=== PATIENT | male | born 1950 | race Caucasian/White ===

== ENCOUNTER → 2018-01-04 | Outpatient (CLI) | payer MEDICARE ==
[~2018-01-04] MED LIST: METO50TA18 PO; MINO100T PO; PRAV40TA3 PO; VERA120T11 PO; WARF5TAB76 PO
== END | disposition home or self-care (01) ==
LOC: SHCH 14:25
PROVIDERS: ATTEND Internal Medicine Cardiovascular Disease
DX: R00.2 Palpitations (principal)
CPT/HCPCS: 93306

== ENCOUNTER 2018-03-11 06:56 | Observation (INO) | payer MEDICARE ==
[2018-03-09 11:07] VITALS: BP 148/88
[2018-03-09 11:25] LABS: BASOPHILS % (AUTO) 0.5 % (0.0-5.0); EOSINOPHILS % (AUTO) 1.6 % (0.0-8.0); HEMATOCRIT 46.3 % (42-54); LYMPHOCYTES % (AUTO) 62.6 % (21.0-51.0); MEAN CORPUSCULAR HEMOGLOBIN 31.5 pg (27.0-33.0); MEAN CORPUSCULAR HGB CONC 34.7 g/dL (32.0-36.0); MEAN CORPUSCULAR VOLUME 90.7 fL (79-99); MONOCYTES % (AUTO) 5.5 % (3.0-13.0); NEUTROPHILS % (AUTO) 29.8 % (40.0-77.0); NUCLEATED RED BLOOD CELLS 0.2 % (0.0-0.19); PLATELET COUNT (AUTO) 177 K/uL (130-400); RED BLOOD CELL COUNT(AUTO) 5.11 MIL/uL (4.50-6.20); RED CELL DISTRIBUTION WIDTH 14.5 % (11.0-15.5); WHITE BLOOD COUNT (AUTO) 12.8 K/uL (4.8-10.8)
[2018-03-09 11:38] LABS: CREATININE 0.9 mg/dL (0.5-1.5); POTASSIUM 4.3 mmol/L (3.5-5.1)
[2018-03-09 11:49] LABS: INR 2.1 (0.85-1.15); PARTIAL THROMBOPLASTIN TIME 37.2 SEC (26.3-35.5); PROTHROMBIN TIME 21.7 SEC (9.6-11.6)
[~2018-03-11] VITALS: Ht 203.2 cm; Wt 157.2 kg
[2018-03-11] VITALS (9 sets, daily range): BP systolic 106–129; BP diastolic 76–90
[2018-03-11 07:50] LABS: INR 1.73 (0.85-1.15); PARTIAL THROMBOPLASTIN TIME 33.4 SEC (26.3-35.5)
[2018-03-11] MEDS: SODIUM CHLORIDE 0.9% 1000ML 1,000 ML IV SCH ×2 (08:28→13:51)
[2018-03-11] MEDS ORDERED: LIDOCAINE HCL-MPF 2% 5ML VIAL ONE ×2 (09:59→10:37)
[2018-03-11] MEDS ORDERED: MIDAZOLAM HCL 1 MG/ML 2ML VIAL ONE ×4 (10:32→12:19)
[2018-03-11] MEDS ORDERED: MEPERIDINE-PF 50 MG/ML SYG ONE ×3 (10:32→12:13)
[2018-03-11] MEDS ORDERED: HEPARIN SODIUM 1000UNIT/ML 10ML VIAL ONE (11:06)
[2018-03-11] MEDS ORDERED: ADENOSINE 3 MG/ML 2ML VIAL IV ONE (11:33)
[2018-03-11] MEDS ORDERED: ISOPROTERENOL HCL 0.2 MG/ML AMP/VIAL/BAG ONE (12:46)
[2018-03-11] MEDS: WARFARIN SODIUM 5 MG TAB PO SCH (15:40)
[2018-03-11] MEDS ORDERED: HYDROCODONE/ACETAMINOPHEN 5/325 MG TAB PO PRN (15:45)
[2018-03-11] MEDS ORDERED: ONDANSETRON HCL 4 MG/2 ML VIAL IVP PRN (15:45)
[2018-03-11] MEDS ORDERED: ACETAMINOPHEN 325 MG TAB PO PRN (15:45)
[2018-03-11] MEDS: METOPROLOL TARTRATE 50 MG TAB PO SCH (20:25)
[2018-03-11] MEDS: ENOXAPARIN SODIUM 120 MG/0.8ML SQ SCH (20:25)
[2018-03-11] MEDS: ENOXAPARIN SODIUM 40 MG/0.4 ML SYRINGE SQ SCH (20:26)
[2018-03-11] MEDS ORDERED: ENOXAPARIN SODIUM 1 MG/KG SQ SCH (21:00)
[2018-03-12 00:27] VITALS: BP 123/75
[2018-03-12 04:52] VITALS: BP 130/78
[2018-03-12 07:30] VITALS: BP 126/80
[2018-03-12] MEDS ORDERED: MINOCYCLINE HCL 50 MG CAP PO SCH (09:00)
[2018-03-12] MEDS: METOPROLOL TARTRATE 50 MG TAB PO SCH (09:39)
[2018-03-12] MEDS: ENOXAPARIN SODIUM 40 MG/0.4 ML SYRINGE SQ SCH (09:40)
[2018-03-12] MEDS: ENOXAPARIN SODIUM 120 MG/0.8ML SQ SCH (09:40)
[2018-03-12 11:30] VITALS: BP 118/75
[2018-03-12 13:37] LABS: INR 1.89 (0.85-1.15); PROTHROMBIN TIME 19.6 SEC (9.6-11.6)
[2018-03-12 16:00] VITALS: BP 119/65
[2018-03-12] MEDS: WARFARIN SODIUM 5 MG TAB PO SCH (17:22)
== END 2018-03-12 17:30 | disposition home or self-care (01) ==
LOC: DAH 06:56 → DAHIP 06:57 → 2DH 14:23
PROVIDERS: ADMIT Internal Medicine Critical Care Medicine; ATTEND Internal Medicine Critical Care Medicine
DX: I47.1 Supraventricular tachycardia (principal); I10 Essential (primary) hypertension; E78.5 Hyperlipidemia, unspecified; D68.59 Other primary thrombophilia; I26.99 Other pulmonary embolism without acute cor pulmonale; Z79.01 Long term (current) use of anticoagulants; Z86.711 Personal history of pulmonary embolism; Z86.718 Personal history of other venous thrombosis and embolism
CPT/HCPCS: 36415 ×3; 80048; 85025; 85060; 85347; 85610 ×3; 85730 ×2; 93005; 93613; 93621; 93623; 93653; 96372 ×2; A4606; A4649; C1730 ×5; C1732; C1893; C1894 ×5; G0378 ×35; J0153; J1644 ×2; J1650 ×5; J2175 ×3; J2250 ×3; J3490 ×3; J7030; 99156; 99157

== ENCOUNTER 2018-03-13 12:51 | Emergency (ER) | payer MEDICARE ==
[~2018-03-13 12:51] MED LIST changes: -VERA120T11 PO
[2018-03-13 13:48] LABS: BASOPHILS % (AUTO) 0.6 % (0.0-5.0); EOSINOPHILS % (AUTO) 1.9 % (0.0-8.0); HEMATOCRIT 42.7 % (42-54); LYMPHOCYTES % (AUTO) 63.6 % (21.0-51.0); MEAN CORPUSCULAR HEMOGLOBIN 31.7 pg (27.0-33.0); MEAN CORPUSCULAR HGB CONC 34.8 g/dL (32.0-36.0); MEAN CORPUSCULAR VOLUME 91.1 fL (79-99); MONOCYTES % (AUTO) 5.3 % (3.0-13.0); NEUTROPHILS % (AUTO) 28.6 % (40.0-77.0); NUCLEATED RED BLOOD CELLS 0.4 % (0.0-0.19); PLATELET COUNT (AUTO) 161 K/uL (130-400); RED BLOOD CELL COUNT(AUTO) 4.69 MIL/uL (4.50-6.20); RED CELL DISTRIBUTION WIDTH 14.6 % (11.0-15.5); WHITE BLOOD COUNT (AUTO) 9.3 K/uL (4.8-10.8)
[2018-03-13 13:59] LABS: INR 2.09 (0.85-1.15); PARTIAL THROMBOPLASTIN TIME 36.9 SEC (26.3-35.5); POTASSIUM 4.8 mmol/L (3.5-5.1); PROTHROMBIN TIME 21.6 SEC (9.6-11.6)
[2018-03-13 14:14] LABS: ALBUMIN 3.1 g/dL (3.5-5.0); BILIRUBIN,TOTAL 0.9 mg/dL (0.2-1.0); TOTAL PROTEIN, SERUM 6.2 g/dL (6.0-8.3)
== END 2018-03-13 14:46 | disposition home or self-care (01) ==
LOC: EDH 12:51
DX: M79.605 Pain in left leg (principal); E78.5 Hyperlipidemia, unspecified; I10 Essential (primary) hypertension; Z86.711 Personal history of pulmonary embolism; Z88.1 Allergy status to other antibiotic agents
CPT/HCPCS: 36415; 71045; 80053; 82550; 82553; 84484; 85025; 85378; 85610; 85730; 93005; 93971

== ENCOUNTER → 2018-07-19 | Outpatient (CLI) | payer MEDICARE | END | disposition home or self-care (01) | LOC: SHCH 12:56 | PROVIDERS: ATTEND Internal Medicine Cardiovascular Disease | DX: I47.2 Ventricular tachycardia (principal); I48.1 Persistent atrial fibrillation; I49.3 Ventricular premature depolarization | CPT/HCPCS: 93306 ==

== ENCOUNTER 2019-10-07 05:45 | Day surgery (SDC) | payer MEDICARE ==
[~2019-10-07] VITALS: Ht 205.7 cm; Wt 152.4 kg
[2019-10-07] MEDS ORDERED: SODIUM CHLORIDE 0.9% 1000ML 1,000 ML IV ONE (06:26)
[2019-10-07 06:35] VITALS: BP 102/73
[2019-10-07 06:47] LABS: INR 1.4 (0.85-1.15); PROTHROMBIN TIME 14.5 SEC (9.6-11.6)
[2019-10-07] MEDS ORDERED: PROPOFOL 10 MG/ML 20ML VIAL IV ONE (07:01)
[2019-10-07] MEDS ORDERED: PHENYLEPHRINE HCL 10 MG/ML 1ML VIAL IV ONE (07:02)
[2019-10-07] MEDS ORDERED: LIDOCAINE HCL 1% 20 ML VIAL ONE (07:02)
[2019-10-07 07:30] VITALS: BP 88/50
[2019-10-07 07:50] VITALS: BP 104/46
== END 2019-10-07 07:57 | disposition home or self-care (01) ==
LOC: ENDO 05:45 → DAH 05:45 → ENDO 07:57
PROVIDERS: ATTEND Internal Medicine Gastroenterology
DX: Z12.11 Encounter for screening for malignant neoplasm of colon (principal); K63.5 Polyp of colon; K57.30 Diverticulosis of large intestine without perforation or abscess without bleeding; E78.5 Hyperlipidemia, unspecified; E66.01 Morbid (severe) obesity due to excess calories; Z68.36 Body mass index [BMI] 36.0-36.9, adult; Z88.1 Allergy status to other antibiotic agents; Z79.899 Other long term (current) drug therapy; Z79.01 Long term (current) use of anticoagulants; Z72.89 Other problems related to lifestyle; Z90.49 Acquired absence of other specified parts of digestive tract; Z98.49 Cataract extraction status, unspecified eye; Z86.010 Personal history of colon polyps
CPT/HCPCS: 36415; 45385; 85610; 88305; A4215; A4221; A4222; A4223; A4606; A4615; A4663; J2370; J2704; J7030

== ENCOUNTER → 2020-11-30 | Outpatient (CLI) | payer MEDICARE ==
[~2020-11-30] MED LIST changes: -METO50TA18 PO; +WARF5TAB PO; -WARF5TAB76 PO
== END | disposition home or self-care (01) ==
LOC: RAH 12:43
PROVIDERS: ATTEND Internal Medicine Cardiovascular Disease
DX: I80.202 Phlebitis and thrombophlebitis of unspecified deep vessels of left lower extremity (principal); I87.2 Venous insufficiency (chronic) (peripheral)
CPT/HCPCS: 93970

== ENCOUNTER → 2020-12-17 | Outpatient (CLI) | payer MEDICARE | END | disposition home or self-care (01) | LOC: SHCH 12:38 | PROVIDERS: ATTEND Internal Medicine Cardiovascular Disease | DX: I10 Essential (primary) hypertension (principal) | CPT/HCPCS: 93306; 93356 ==

== ENCOUNTER → 2021-03-21 | Outpatient (CLI) | payer MEDICARE | END | disposition home or self-care (01) | LOC: SHCH 09:42 | PROVIDERS: ATTEND Internal Medicine Cardiovascular Disease | DX: I08.0 Rheumatic disorders of both mitral and aortic valves (principal); I42.0 Dilated cardiomyopathy; R55 Syncope and collapse; E66.9 Obesity, unspecified; E78.5 Hyperlipidemia, unspecified | CPT/HCPCS: 93306; 93356 ==

== ENCOUNTER → 2021-03-22 | Outpatient (CLI) | payer MEDICARE ==
[~2021-03-22] VITALS: Ht 198.1 cm; Wt 145.1 kg
[~2021-03-22] MED LIST changes: +REGADENOSON 0.4 MG/5 ML PF SYG IVP SCH
== END | disposition home or self-care (01) ==
LOC: SHCH 07:43
PROVIDERS: ATTEND Internal Medicine Cardiovascular Disease
DX: I42.0 Dilated cardiomyopathy (principal); R06.02 Shortness of breath
CPT/HCPCS: 78452; 93017; 96374; A9500 ×2; J2785

== ENCOUNTER 2021-04-26 07:46 | Day surgery (SDC) | payer MEDICARE ==
[2021-04-23 09:19] LABS: BASOPHILS % (AUTO) 0.5 % (0.0-5.0); EOSINOPHILS % (AUTO) 0.9 % (0.0-8.0); HEMATOCRIT 50.8 % (42-54); LYMPHOCYTES % (AUTO) 70.4 % (21.0-51.0); MEAN CORPUSCULAR HEMOGLOBIN 30.9 pg (27.0-33.0); MEAN CORPUSCULAR HGB CONC 32.9 g/dL (32.0-36.0); MEAN CORPUSCULAR VOLUME 94.1 fL (79-99); MONOCYTES % (AUTO) 4.4 % (3.0-13.0); NEUTROPHILS % (AUTO) 23.7 % (40.0-77.0); PLATELET COUNT (AUTO) 165 K/uL (130-400); RED CELL DISTRIBUTION WIDTH 14.7 % (11.0-15.5); WHITE BLOOD COUNT (AUTO) 14.5 K/uL (4.8-10.8)
[2021-04-23 09:32] LABS: CREATININE 1.1 mg/dL (0.5-1.5); POTASSIUM 4.4 mmol/L (3.5-5.1)
[2021-04-25 12:30] VITALS: BP 100/76
[~2021-04-26] VITALS: Ht 200.7 cm; Wt 144.8 kg
[2021-04-26] VITALS (25 sets, daily range): BP systolic 93–136; BP diastolic 59–91
[~2021-04-26 07:46] MED LIST changes: +LOSA25TA41 PO; -REGADENOSON 0.4 MG/5 ML PF SYG IVP SCH; +WARF-57 PO; -WARF5TAB PO
[2021-04-26] MEDS ORDERED: 0.9%NACL 1000ML 1,000 ML IV ONE (09:02)
[2021-04-26] MEDS ORDERED: FLUMAZENIL 0.1MG/1ML 5ML VIAL IV ONE (09:04)
[2021-04-26] MEDS ORDERED: NALOXONE HCL 0.4 MG/1 ML ML ONE (09:04)
[2021-04-26] MEDS ORDERED: MIDAZOLAM HCL 1 MG/ML 2ML VIAL ONE ×7 (09:05→13:04)
[2021-04-26] MEDS ORDERED: FENTANYL CITRATE PF 50 MCG/1 ML 2ML VIAL ONE (09:05)
[2021-04-26 09:06] LABS: INR 1.15 (0.85-1.15); PROTHROMBIN TIME 12.4 SEC (9.6-11.6)
[2021-04-26 09:08] LABS: PARTIAL THROMBOPLASTIN TIME 28.5 SEC (26.3-35.5)
[2021-04-26] MEDS ORDERED: ONDANSETRON 4MG INJ ONE ×2 (09:25→10:23)
[2021-04-26] MEDS ORDERED: LIDOCAINE HCL 2% VISCOUS 15 ML UDCUP ONE (09:25)
[2021-04-26 10:19] LABS: HEMATOCRIT 42.3 % (42-54); MEAN CORPUSCULAR HGB CONC 33.3 g/dL (32.0-36.0); NUCLEATED RED BLOOD CELLS 0.2 % (0.0-0.19); PLATELET COUNT (AUTO) 135 K/uL (130-400); RED BLOOD CELL COUNT(AUTO) 4.55 MIL/uL (4.50-6.20); RED CELL DISTRIBUTION WIDTH 14.7 % (11.0-15.5); WHITE BLOOD COUNT (AUTO) 11.4 K/uL (4.8-10.8)
[2021-04-26] MEDS ORDERED: BUPIVACAINE/PF 0.25% 30ML VIAL IJ ONE (10:23)
[2021-04-26] MEDS ORDERED: MEPERIDINE-PF 25 MG/ML SYG ONE ×6 (10:23→13:04)
[2021-04-26] MEDS ORDERED: CEFAZOLIN SODIUM 1 GM VIAL ONE ×2 (10:23→10:45)
[2021-04-26] MEDS ORDERED: LIDOCAINE HCL 1% MDV 50ML VIAL ONE (10:24)
[2021-04-26 10:36] LABS: EOSINOPHILS % (MANUAL) 1 % (1-6); LYMPHOCYTES % (MANUAL) 55 % (22-44); MONOCYTES % (MANUAL) 4 % (2-9); REACTIVE LYMPHOCYTES 5 % (0-0); SEGMENTED NEUTROPHILS % 35 % (40-70)
[2021-04-26 10:37] LABS: MAN.DIFF COMMENT-IMPRESSION MANUAL DIFFERENTIAL; PLATELET MORPHOLOGY COMMENT ADEQUATE
[2021-04-26] MEDS ORDERED: IODIXANOL 320 MG/ML 100 ML VIAL ONE (11:02)
[2021-04-26] MEDS ORDERED: ONDANSETRON 4MG INJ IVP ONE (11:30)
[2021-04-26] MEDS ORDERED: ACETAMINOPHEN WITH CODEINE 1 TAB TAB PO PRN ×2 (13:00)
[2021-04-26] MEDS ORDERED: PROPOFOL 10 MG/ML 20ML VIAL IV ONE (13:00)
[2021-04-26] MEDS ORDERED: ONDANSETRON 4MG INJ IV PRN (13:00)
[2021-04-26] MEDS ORDERED: PHARMACY COMMUNICATION MISC SCH (13:30)
[2021-04-26] MEDS ORDERED: AMIODARONE 150MG VIAL 300 MG in DEXTROSE 5%-WATER 100 ML IV SCH ×2 (14:00→15:00)
[2021-04-26] MEDS ORDERED: CEFAZOLIN SODIUM 1 GM VIAL IVP SCH ×2 (14:30→17:00)
== END 2021-04-26 20:46 | disposition home or self-care (01) ==
LOC: DAH 07:46
PROVIDERS: ATTEND Internal Medicine Cardiovascular Disease
DX: I42.8 Other cardiomyopathies (principal); I49.5 Sick sinus syndrome; I08.0 Rheumatic disorders of both mitral and aortic valves; I50.42 Chronic combined systolic (congestive) and diastolic (congestive) heart failure; I48.0 Paroxysmal atrial fibrillation; I25.2 Old myocardial infarction; I47.1 Supraventricular tachycardia; K21.9 Gastro-esophageal reflux disease without esophagitis; E78.5 Hyperlipidemia, unspecified; Z86.718 Personal history of other venous thrombosis and embolism; Z79.01 Long term (current) use of anticoagulants; Z79.899 Other long term (current) drug therapy; Z98.890 Other specified postprocedural states; Z98.52 Vasectomy status
CPT/HCPCS: 33225; 33249; 36415 ×2; 71045; 80048; 85025 ×2; 85610; 85730; 87426; 92960; 93005 ×2; 93312; 93325; A4215; A4216; A4221; A4222; A4223 ×3; A4606; A4615; A4663; C1769 ×5; C1882; C1894; C1895; C1896; C1900; J0282 ×2; J0690 ×3; J2175 ×6; J2250 ×7; J2405 ×3; J2704; J3010; J3490 ×2; J7030; J7060 ×2; Q9967; 93313; 99156; 99157; J2310

== ENCOUNTER 2022-01-24 17:07 | Emergency (ER) | payer MEDICARE ==
[~2022-01-24] VITALS: Ht 200.7 cm; Wt 144.2 kg
[2022-01-24] MEDS ORDERED: DIAZEPAM 5 MG TABLET PO ONE (18:00)
[2022-01-24] MEDS ORDERED: KETOROLAC 30MG VIAL (30MG/ML) IM ONE (18:00)
[2022-01-24] MEDS ORDERED: NAPR-1180 PO (18:08)
[2022-01-24] MEDS ORDERED: CYCL10TA16 PO (18:08)
[2022-01-24 18:45] VITALS: BP 145/65
== END 2022-01-24 18:46 | disposition home or self-care (01) ==
LOC: EDH 17:07
DX: M43.6 Torticollis (principal); I10 Essential (primary) hypertension; Z88.1 Allergy status to other antibiotic agents; Z79.01 Long term (current) use of anticoagulants; Z79.1 Long term (current) use of non-steroidal anti-inflammatories (NSAID); Z79.899 Other long term (current) drug therapy; Z90.49 Acquired absence of other specified parts of digestive tract; Z95.810 Presence of automatic (implantable) cardiac defibrillator
CPT/HCPCS: 96372; 99283; J1885

== ENCOUNTER 2023-02-26 06:30 | Emergency (ER) | payer MEDICARE ==
[~2023-02-26] VITALS: Ht 205.7 cm; Wt 136.1 kg
[~2023-02-26 06:30] MED LIST changes: +CYCL10TA16 PO; +NAPR-1180 PO
[2023-02-26 07:27] VITALS: BP 104/68
[2023-02-26] MEDS ORDERED: LACTATED RINGERS 1000ML 1,000 ML IV ONE (07:30)
[2023-02-26] MEDS ORDERED: KETOROLAC 15MG/ML VIAL (15MG/ML) IV ONE (07:30)
[2023-02-26 07:51] LABS: BASOPHILS % (AUTO) 0.7 % (0.0-5.0); EOSINOPHILS % (AUTO) 2.1 % (0.0-8.0); HEMATOCRIT 39.9 % (42-54); LYMPHOCYTES % (AUTO) 51.3 % (21.0-51.0); MEAN CORPUSCULAR HEMOGLOBIN 31.6 pg (27.0-33.0); MEAN CORPUSCULAR HGB CONC 32.3 g/dL (32.0-36.0); MEAN CORPUSCULAR VOLUME 97.8 fL (79-99); MONOCYTES % (AUTO) 7.5 % (3.0-13.0); NEUTROPHILS % (AUTO) 38.3 % (40.0-77.0); PLATELET COUNT (AUTO) 139 K/uL (130-400); RED BLOOD CELL COUNT(AUTO) 4.08 MIL/uL (4.50-6.20); RED CELL DISTRIBUTION WIDTH 14.4 % (11.0-15.5); WHITE BLOOD COUNT (AUTO) 7.1 K/uL (4.8-10.8)
[2023-02-26 08:01] LABS: APPEARANCE,URINE CLEAR (CLEAR); BILIRUBIN,URINE NEGATIVE (NEGATIVE); COLOR,URINE YELLOW (YELLOW); GLUCOSE, URINE (UA) NEGATIVE (NEGATIVE); KETONES,URINE NEGATIVE (NEGATIVE); LEUKOCYTE ESTERASE ,URINE NEGATIVE Leu/uL (NEGATIVE); NITRATE,URINE NEGATIVE (NEGATIVE); OCCULT BLOOD,URINE SMALL (NEGATIVE); PROTEIN,URINE NEGATIVE (NEGATIVE); UROBILINOGEN,URINE 0.2 mg/dL (0.2-1.0)
[2023-02-26 08:07] LABS: ALBUMIN 3.2 g/dL (3.5-5.0); POTASSIUM 4.1 mmol/L (3.5-5.1); TOTAL PROTEIN, SERUM 6.1 g/dL (6.0-8.3)
[2023-02-26 08:08] LABS: MUCUS,URINE RARE LPF (None Seen)
[2023-02-26 08:18] LABS: INR 4.39 (0.85-1.15)
[2023-02-26] MEDS ORDERED: FAMO40TA75 PO (10:25)
[2023-02-26] MEDS ORDERED: PRED20TA3 PO (10:25)
== END 2023-02-26 10:46 | disposition home or self-care (01) ==
LOC: EDH 06:30
DX: R10.9 Unspecified abdominal pain (principal); M54.9 Dorsalgia, unspecified; R79.1 Abnormal coagulation profile; I10 Essential (primary) hypertension; Z79.899 Other long term (current) drug therapy; Z98.890 Other specified postprocedural states; Z90.49 Acquired absence of other specified parts of digestive tract; Z90.89 Acquired absence of other organs
CPT/HCPCS: 99285; 74176; 96374; 96361; 80053; 85025; 85610; 81001; 36415; J7120; J1885

== ENCOUNTER 2023-04-02 06:33 | Day surgery (SDC) | payer MEDICARE ==
[2023-03-27 12:02] LABS: APPEARANCE,URINE CLEAR (CLEAR); BILIRUBIN,URINE NEGATIVE (NEGATIVE); COLOR,URINE YELLOW (YELLOW); GLUCOSE, URINE (UA) NEGATIVE (NEGATIVE); KETONES,URINE NEGATIVE (NEGATIVE); LEUKOCYTE ESTERASE ,URINE NEGATIVE Leu/uL (NEGATIVE); NITRATE,URINE NEGATIVE (NEGATIVE); OCCULT BLOOD,URINE SMALL (NEGATIVE); PROTEIN,URINE 10 mg/dL (NEGATIVE)
[2023-03-27 12:37] LABS: BASOPHILS % (AUTO) 0.4 % (0.0-5.0); HEMATOCRIT 41.5 % (42-54); LYMPHOCYTES % (AUTO) 54.7 % (21.0-51.0); MEAN CORPUSCULAR HEMOGLOBIN 31.7 pg (27.0-33.0); MEAN CORPUSCULAR VOLUME 98.8 fL (79-99); MONOCYTES % (AUTO) 6.3 % (3.0-13.0); NEUTROPHILS % (AUTO) 37.5 % (40.0-77.0); PLATELET COUNT (AUTO) 146 K/uL (130-400); RED CELL DISTRIBUTION WIDTH 14.8 % (11.0-15.5); WHITE BLOOD COUNT (AUTO) 8.2 K/uL (4.8-10.8)
[2023-03-27 12:39] LABS: BACTERIA,URINE RARE /HPF (None Seen); MUCUS,URINE RARE LPF (None Seen); SQUAMOUS EPITHELIAL CELL,UR RARE /HPF (0-2)
[2023-03-27 13:01] LABS: INR 3.46 (0.85-1.15)
[2023-03-27 13:03] LABS: PARTIAL THROMBOPLASTIN TIME 46.9 SEC (26.3-35.5)
[~2023-04-02] VITALS: Ht 205.7 cm; Wt 136.3 kg
[2023-04-02] VITALS (15 sets, daily range): BP systolic 92–130; BP diastolic 57–94; PULSE 64–99; RESP 14–18
[~2023-04-02 06:33] MED LIST changes: +CARV12.511 PO; -CYCL10TA16 PO; +DAPS100T PO; -MINO100T PO; -NAPR-1180 PO; -PRAV40TA3 PO
[2023-04-02] MEDS ORDERED: LACTATED RINGERS 1000ML 1,000 ML IV ONE (06:57)
[2023-04-02] MEDS: CEFTRIAXONE 1G VIAL ONE ×2 (07:02→08:52)
[2023-04-02 07:29] LABS: INR 1.72 (0.85-1.15); PROTHROMBIN TIME 19.3 SEC (9.6-11.6)
[2023-04-02 07:30] LABS: PARTIAL THROMBOPLASTIN TIME 36.7 SEC (26.3-35.5)
[2023-04-02] MEDS ORDERED: IOHEXOL-350 50ML VIAL IV ONE (07:52)
[2023-04-02] MEDS ORDERED: MIDAZOLAM HCL 1 MG/ML 2ML VIAL ONE (08:34)
[2023-04-02] MEDS ORDERED: ROCURONIUM 10MG/1ML SYR 10 MG/ML ML ONE (08:39)
[2023-04-02] MEDS ORDERED: PROPOFOL 10 MG/ML 20ML VIAL IV ONE (08:39)
[2023-04-02] MEDS ORDERED: SUCCINYLCHOLINE 200MG/10ML SYR ONE (08:39)
[2023-04-02] MEDS ORDERED: LIDOCAINE PF 100MG/5ML (2%) SYRINGE 5ML ONE (08:39)
[2023-04-02] MEDS ORDERED: FENTANYL CITRATE PF 50 MCG/1 ML 2ML VIAL ONE (08:40)
[2023-04-02] MEDS ORDERED: EPHEDRINE SULFATE 50 MG/ML AMPULE ONE (08:53)
[2023-04-02] MEDS ORDERED: DEXAMETHASONE SOD PHOSPHATE 10MG/ML 1ML VIAL ONE (09:01)
[2023-04-02] MEDS ORDERED: ONDANSETRON 4MG INJ ONE (09:01)
[2023-04-02] MEDS ORDERED: NEOSTIGMINE 5MG/5ML SYR IV ONE (09:52)
[2023-04-02] MEDS ORDERED: GLYCOPYRROLATE 1 MG/5 ML SYRINGE ONE (09:52)
== END 2023-04-02 11:50 | disposition home or self-care (01) ==
LOC: DAH 06:33
PROVIDERS: ATTEND Urology
DX: N20.2 Calculus of kidney with calculus of ureter (principal); Z20.822 Contact with and (suspected) exposure to COVID-19; R31.0 Gross hematuria; K21.9 Gastro-esophageal reflux disease without esophagitis; E66.9 Obesity, unspecified; Z86.718 Personal history of other venous thrombosis and embolism; Z79.01 Long term (current) use of anticoagulants; Z98.890 Other specified postprocedural states; Z79.899 Other long term (current) drug therapy
CPT/HCPCS: 71045; 87426; 80048; 85025; 85610 ×2; 85730 ×2; 87088; 81001; 36415 ×2; 93005; 52356; 82360; 74018; A6260; A4663; J7030; C1758; C2617; J7120; J3010; J0330; J3490 ×2; J1100; J2710; J2001; J0696; J2250; J2704; J2405; A6204; A4358; A4930; A4215; A4223; A4222; A4221; C1769; A4600; Q9967

== ENCOUNTER → 2023-07-15 | Outpatient (CLI) | payer MEDICARE ==
[2023-07-15 11:32] LABS: BASOPHILS # (AUTO) 0.05 K/uL (0.00-0.20); BASOPHILS % (AUTO) 0.6 % (0.0-5.0); EOSINOPHILS # (AUTO) 0.14 K/uL (0.00-0.70); EOSINOPHILS % (AUTO) 1.8 % (0.0-8.0); HEMATOCRIT 39.9 % (42-54); IMMATURE GRANULOCYTE ABSOLUTE 0.01 K/uL (0-1); LYMPHOCYTES % (AUTO) 51.2 % (21.0-51.0); MEAN CORPUSCULAR HEMOGLOBIN 32.3 pg (27.0-33.0); MEAN CORPUSCULAR HGB CONC 32.8 g/dL (32.0-36.0); MEAN CORPUSCULAR VOLUME 98.3 fL (79-99); MONOCYTES # (AUTO) 0.6 K/uL (0.1-1.0); MONOCYTES % (AUTO) 7.5 % (3.0-13.0); NEUTROPHILS % (AUTO) 38.8 % (40.0-77.0); PLATELET COUNT (AUTO) 141 K/uL (130-400); RED BLOOD CELL COUNT(AUTO) 4.06 MIL/uL (4.50-6.20); RED CELL DISTRIBUTION WIDTH 14.6 % (11.0-15.5); WHITE BLOOD COUNT (AUTO) 7.8 K/uL (4.8-10.8)
[2023-07-15 11:45] LABS: ALBUMIN 3.5 g/dL (3.5-5.0); BILIRUBIN,TOTAL 1.3 mg/dL (0.2-1.0); CREATININE 1.2 mg/dL (0.5-1.5); MAGNESIUM 1.6 mg/dL (1.80-2.40); POTASSIUM 4.4 mmol/L (3.5-5.1); TOTAL PROTEIN, SERUM 6.5 g/dL (6.0-8.3)
== END | disposition home or self-care (01) ==
LOC: LAB 10:46
PROVIDERS: ATTEND Internal Medicine Cardiovascular Disease
DX: R00.2 Palpitations (principal); I10 Essential (primary) hypertension
CPT/HCPCS: 36415; 80053; 82330; 83735; 85025

== ENCOUNTER 2023-12-02 04:47 | Emergency (ER) | payer MEDICARE ==
[2023-12-02] MEDS: MORPHINE 2 MG SYG IM ONE (05:21)
[2023-12-02] MEDS ORDERED: PRED20TA3 PO (07:02)
[2023-12-02] MEDS ORDERED: MELO10CA3 PO (07:02)
[2023-12-02] MEDS ORDERED: CYCL-309 PO (07:02)
[2023-12-02 07:12] VITALS: BP 128/89; PULSE 69; RESP 18; O2SAT 97
== END 2023-12-02 07:31 | disposition home or self-care (01) ==
LOC: EDH 04:47
DX: M25.552 Pain in left hip (principal); I10 Essential (primary) hypertension; Z79.1 Long term (current) use of non-steroidal anti-inflammatories (NSAID); Z79.899 Other long term (current) drug therapy; Z88.1 Allergy status to other antibiotic agents; Z90.49 Acquired absence of other specified parts of digestive tract; Z95.810 Presence of automatic (implantable) cardiac defibrillator
CPT/HCPCS: 99283; 73502; 96372; J2270

== ENCOUNTER → 2024-04-20 | Outpatient (CLI) | payer MEDICARE ==
[~2024-04-20] MED LIST changes: -CARV12.511 PO; -LOSA25TA41 PO; +WARF2.5T85 PO
== END | disposition home or self-care (01) ==
LOC: SHCH 07:58
PROVIDERS: ATTEND Internal Medicine Cardiovascular Disease
DX: I08.3 Combined rheumatic disorders of mitral, aortic and tricuspid valves (principal); I11.9 Hypertensive heart disease without heart failure; I25.10 Atherosclerotic heart disease of native coronary artery without angina pectoris; I48.91 Unspecified atrial fibrillation; E78.5 Hyperlipidemia, unspecified
CPT/HCPCS: 93306

== ENCOUNTER → 2024-05-10 | Outpatient (CLI) | payer MEDICARE ==
[~2024-05-10] MED LIST changes: +DRON400T7 PO
[2024-05-10] MEDS: REGADENOSON 0.4 MG/5 ML PF SYG IVP ONE (11:17)
== END | disposition home or self-care (01) ==
LOC: SHCH 08:11
PROVIDERS: ATTEND Internal Medicine Cardiovascular Disease
DX: I11.9 Hypertensive heart disease without heart failure (principal); Z95.0 Presence of cardiac pacemaker
CPT/HCPCS: 78452; 93017; J2785; A9500 ×2

== ENCOUNTER 2024-05-13 07:17 | Day surgery (SDC) | payer MEDICARE ==
[2024-05-11 11:01] VITALS: BP 117/71; PULSE 85; RESP 17; TEMP 97.8
[2024-05-11 11:15] LABS: BASOPHILS # (AUTO) 0.03 K/uL (0.00-0.20); BASOPHILS % (AUTO) 0.4 % (0.0-5.0); EOSINOPHILS # (AUTO) 0.06 K/uL (0.00-0.70); EOSINOPHILS % (AUTO) 0.9 % (0.0-8.0); HEMATOCRIT 44.5 % (42-54); IMMATURE GRANULOCYTE ABSOLUTE 0.02 K/uL (0-1); LYMPHOCYTES # (AUTO) 2.3 K/uL (1.0-4.8); LYMPHOCYTES % (AUTO) 33.1 % (21.0-51.0); MEAN CORPUSCULAR HEMOGLOBIN 29.8 pg (27.0-33.0); MEAN CORPUSCULAR HGB CONC 31.9 g/dL (32.0-36.0); MEAN CORPUSCULAR VOLUME 93.5 fL (79-99); MONOCYTES # (AUTO) 0.6 K/uL (0.1-1.0); MONOCYTES % (AUTO) 8.4 % (3.0-13.0); NEUTROPHILS % (AUTO) 56.9 % (40.0-77.0); PLATELET COUNT (AUTO) 213 K/uL (130-400); RED BLOOD CELL COUNT(AUTO) 4.76 MIL/uL (4.50-6.20); RED CELL DISTRIBUTION WIDTH 16.5 % (11.0-15.5)
[2024-05-11 11:18] LABS: CREATININE 1.1 mg/dL (0.5-1.3); POTASSIUM 4.3 mmol/L (3.5-5.1)
[2024-05-11 11:25] LABS: INR 3.23 (0.85-1.15)
[2024-05-11 11:26] LABS: PARTIAL THROMBOPLASTIN TIME 37.5 SEC (26.3-35.5)
[~2024-05-13] VITALS: Ht 200.7 cm; Wt 128.4 kg
[2024-05-13 07:35] VITALS: BP 128/68; PULSE 98; RESP 15; TEMP 97.4
[2024-05-13] MEDS ORDERED: phenylEPHRINE HCL 10 MG/ML 1ML VIAL IV ONE (08:03)
[2024-05-13] MEDS ORDERED: proPOFol 10 MG/ML 20ML VIAL IV ONE (08:03)
[2024-05-13] MEDS ORDERED: LIDOCAINE PF 100MG/5ML (2%) SYRINGE 5ML ONE (08:03)
[2024-05-13 09:20] VITALS: BP 121/68; PULSE 84; RESP 15
[2024-05-13 09:30] VITALS: BP 135/67; PULSE 91; RESP 14
[2024-05-13 09:40] VITALS: BP 124/68; PULSE 96; RESP 16
[2024-05-13 09:50] VITALS: BP 123/62; PULSE 95; RESP 15; TEMP 97.3
== END 2024-05-13 10:00 | disposition home or self-care (01) ==
LOC: DAH 07:17
PROVIDERS: ATTEND Internal Medicine Cardiovascular Disease
DX: I48.19 Other persistent atrial fibrillation (principal); E78.5 Hyperlipidemia, unspecified; Z86.718 Personal history of other venous thrombosis and embolism; Z95.810 Presence of automatic (implantable) cardiac defibrillator; Z88.1 Allergy status to other antibiotic agents; Z79.01 Long term (current) use of anticoagulants; Z79.899 Other long term (current) drug therapy
CPT/HCPCS: 80048; 85025; 85610; 85730; 36415; 92960; 93005 ×2; J2001; J2704; J2371; A4620; A4215; A4222; A4221; A4663; A4216; A4606; A4223 ×3; J3490

== ENCOUNTER → 2024-07-21 | Outpatient (CLI) | payer MEDICARE ==
--- NOTE | 2024-07-25 13:27 | HMCSR ---
APPROVED REPORT EXAM: Two-dimensional and M-mode echocardiogram with Doppler and color Doppler. INDICATION ICD: I49.5 Sick sinus syndrome Atrial Fibrillation 2D Dimensions RVDd5.3 cmLVEF(%)40.4 (>50%)LVED Vol(simp.)154.0 mL IVSd1.1 (0.7-1.1cm)FS(%)20 %LVES Vol(simp.)93.0 mL LVDd6.0 (3.8-5.6cm)Ao Root(2D)5.2 (2.0-3.7cm)LVEF(%, simp.)40 % PWd1.1 (0.7-1.1cm)LVOT diam2.8 (1.8-2.4cm)LA ESV INDEX (BP)42.85 mL/m2 LVDs4.8 (2.5-4.0cm)IVC diam1.9 cm M-Mode Dimensions EPSS2.5 cm Ao Root(MM)5.3 (2.0-3.7cm) Aortic Valve AoV Vmax1.1 m/Kiet Peak GR4.6 mmHgLVOT Vmax0.9 m/s AoV VTI0.2 mAo Mean GR2.8 mmHgLVOT VTI0.16 m DANIKA (VMAX)4.8 cm2Al P1/2T549 msAVA (VTI) 4.8 cm2 Mitral Valve MV E Vmax38.5 cm/sDECEL Uptm375 ms MV A Vmax48.7 cm/sP 1/2 T121 ms E/A ratio0.8MVA (PHT)1.8 cm2 MR Max PG50 mmHg TDI E/E' Medial4.9E/E' Lateral5.7 Pulmonary Valve PV Vmax0.7 m/sPV VTI0.12 mPV Mean GR1 mmHg PV Peak GR1.8 mmHgPI End Rula. Deejay 1.0 cm/s Tricuspid Valve TR Vmax2.5 m/sRAP (EST) 8 xcVfXHAQ85.9 mmHg TR Peak GR25.9 mmHg Left Ventricle The left ventricle is dilated. Dyssynchronous wall moption. There is borderline to mild concentric le ft ventricular hypertrophy. LVEF is 40%. No left ventricle thrombus noted on this study. Grade 1 alexis tolic dysfunction Right Ventricle The right ventricle is severely dilated. The right ventricular systolic function is normal. Atria The left atrium is moderately dilated. The right atrium is dilated. Aortic Valve Aortic valve is trileaflet. Aortic valve leaflets are sclerotic but open well. Trace aortic regurgita tion. There is no aortic valvular stenosis. Mitral Valve Mitral valve leaflets are mildly sclerotic but open well. Mitral regurgitation is trace to mild. Ther e is no mitral valve stenosis. Tricuspid Valve The tricuspid valve leaflets appear normal. There is trace to mild tricuspid regurgitation. Right jeromy tricular systolic pressure is estimated at 30-40 mmHg. Pulmonic Valve Pulmonic valve is not well visualized. There is trace valvular regurgitation. Great Vessels Aortic root is moderately dilated(5.2cm). IVC is dilated and collapses >50% with inspiration. Pericardium No pericardial effusion. Conclusion The left ventricle is dilated. There is borderline to mild concentric left ventricular hypertrophy. LVEF is 40%. Grade 1 diastolic dysfunction Dyssynchronous wall moption. The right ventricle is severely dilated. The left atrium is moderately dilated. The right atrium is dilated. Aortic valve is trileaflet. Aortic valve leaflets are sclerotic but open well. Trace aortic regurgitation. Mitral valve leaflets are mildly sclerotic but open well. Mitral regurgitation is trace to mild. There is trace to mild tricuspid regurgitation. Right ventricular systolic pressure is estimated at 30-40 mmHg. There is trace valvular regurgitation. Aortic root is moderately dilated(5.2cm). IVC is dilated and collapses >50% with inspiration. No pericardial effusion.
== END | disposition home or self-care (01) ==
LOC: SHCH 07:42
PROVIDERS: ATTEND Internal Medicine Cardiovascular Disease
DX: I08.3 Combined rheumatic disorders of mitral, aortic and tricuspid valves (principal); I48.0 Paroxysmal atrial fibrillation; I49.5 Sick sinus syndrome
CPT/HCPCS: 93306

== ENCOUNTER → 2024-08-28 | Outpatient (CLI) | payer MEDICARE ==
[2024-08-28 22:09] VITALS: PULSE 48; RESP 16
[2024-08-28 23:00] VITALS: PULSE 42; RESP 20
[2024-08-28 23:30] VITALS: PULSE 80; RESP 18
[2024-08-29] VITALS (9 sets, daily range): PULSE 58–70; RESP 18–30
== END | disposition home or self-care (01) ==
LOC: SLP 20:42
PROVIDERS: ATTEND Internal Medicine Cardiovascular Disease
DX: G47.33 Obstructive sleep apnea (adult) (pediatric) (principal)
CPT/HCPCS: 95810

== ENCOUNTER → 2024-09-02 | Outpatient (CLI) | payer MEDICARE ==
[2024-09-02 22:28] VITALS: PULSE 56; RESP 20
[2024-09-02 23:00] VITALS: PULSE 56; RESP 18
[2024-09-02 23:30] VITALS: PULSE 58; RESP 18
[2024-09-03] VITALS (10 sets, daily range): PULSE 42–58; RESP 14–38
== END | disposition home or self-care (01) ==
LOC: SLP 20:26
PROVIDERS: ATTEND Internal Medicine Cardiovascular Disease
DX: G47.33 Obstructive sleep apnea (adult) (pediatric) (principal)
CPT/HCPCS: 95811

== ENCOUNTER → 2024-10-07 | Outpatient (CLI) | payer MEDICARE ==
[2024-10-07 13:04] LABS: CREATININE 1.2 mg/dL (0.5-1.3); MAGNESIUM 1.6 mg/dL (1.80-2.40); POTASSIUM 4.5 mmol/L (3.5-5.1)
== END | disposition home or self-care (01) ==
LOC: LAB 11:03
PROVIDERS: ATTEND Nurse Practitioner Acute Care
DX: I10 Essential (primary) hypertension (principal)
CPT/HCPCS: 36415; 80048; 83735; 83880

== ENCOUNTER → 2025-03-15 | Outpatient (CLI) | payer MEDICARE ==
[2025-03-15 14:46] LABS: CREATININE 1.1 mg/dL (0.5-1.3); GLOMERULAR FILTR. RATE CALC 70.0 mL/min (>90); UREA NITROGEN, BLOOD 26.0 mg/dL (7-18)
== END | disposition home or self-care (01) ==
LOC: LAB 13:54
PROVIDERS: ATTEND Internal Medicine Gastroenterology
DX: K22.9 Disease of esophagus, unspecified (principal)
CPT/HCPCS: 36415; 82565; 84520

== ENCOUNTER → 2025-03-24 | Outpatient (CLI) | payer MEDICARE ==
[~2025-03-24] MED LIST changes: +IOHEXOL-350 75 ML VIAL IV ONE
--- NOTE | 2025-03-25 04:38 | HMCIMG ---
EXAM: CT Abdomen and Pelvis without and with IV contrast. CLINICAL HISTORY: Epigastric pain, benign neoplasm of the liver. TECHNIQUE: Thin collimated axial CT images of the abdomen and pelvis were obtained with sagittal and coronal reformatted images also submitted. CT scan done according to ALARA (As Low As Reasonably Achievable). Intravenous contrast was administered. COMPARISON: CT abdomen and pelvis without contrast dated 02/26/23. FINDINGS: Multiple subsegmental atelectatic bands in the bilateral lower lobes and lingular segment of the left upper lobe. Pacemaker leads in place. The liver is normal in size and shape. There is a 2.5 x 3.9 x 5 cm (CC x AP x TR) lesion in segment II of the left lobe of the liver, appearing hypodense in the portal venous phase images with peripheral nodular enhancement, and gradual progressive centripetal enhancement in the delayed phase images. There is also a tiny simple cyst in segment of the right lobe. No intrahepatic biliary radical dilatation. Post-cholecystectomy status. There is no focal abnormality appreciated within the gallbladder, pancreas, spleen, adrenals, or kidneys. A small splenunculus is visualized. IVC filter in place. There is no obvious bowel wall thickening. Bowel loops are normal in caliber without evidence of obstruction or ileus. The appendix is not visualized. There is no abnormality within the urinary bladder. Moderate prostatomegaly. Abdominal and pelvic vessels are patent. Mild atheromatous vascular plaques in the abdominal aorta. No significant lymphadenopathy. No free fluid. There is no acute osseous abnormality. Moderate degenerative osseous changes. Left hip arthroplasty with orthopedic hardware in place. IMPRESSION: 1. 2.5 x 3.9 x 5 cm hypodense lesion in hepatic segment II with early peripheral nodular and delayed progressive centripetal enhancement, consistent with hemangioma. 2. Tiny simple hepatic cyst in segment . 3. Moderate prostatomegaly. 4. Post-cholecystectomy changes. 5. IVC filter and cardiac pacemaker leads in place. 6. Mild atherosclerotic changes of the abdominal aorta. 7. Left hip arthroplasty with moderate degenerative changes of the visualized bones. No significant interval change from the prior CT abdomen and pelvis without contrast dated 02/26/23, within the limitations of cross technique correlation. /[place]
== END | disposition home or self-care (01) ==
LOC: DAH 08:40 → RAH 08:40
PROVIDERS: ATTEND Internal Medicine Gastroenterology
DX: N40.0 Benign prostatic hyperplasia without lower urinary tract symptoms (principal); D13.4 Benign neoplasm of liver; R10.13 Epigastric pain; K22.9 Disease of esophagus, unspecified; J98.11 Atelectasis; K76.89 Other specified diseases of liver; I70.0 Atherosclerosis of aorta; Z96.642 Presence of left artificial hip joint; Z95.0 Presence of cardiac pacemaker; Z90.49 Acquired absence of other specified parts of digestive tract
CPT/HCPCS: 74177; Q9967